=== PATIENT | female | born 1990 | race Caucasian/White ===

== ENCOUNTER 2017-01-06 18:05 | Observation (INO) | payer MEDICAID ==
[2017-01-06 18:23] VITALS: BP 125/75
[2017-01-06] MEDS ORDERED: FERR-89 PO (18:30)
[2017-01-06] MEDS ORDERED: PREN1TAB80 PO (18:30)
== END 2017-01-07 00:15 | disposition home or self-care (01) ==
LOC: 4S 18:05
PROVIDERS: ADMIT Obstetrics & Gynecology; ATTEND Obstetrics & Gynecology
DX: O9A.213 Injury, poisoning and certain other consequences of external causes complicating pregnancy, third trimester (principal); S39.91XA Unspecified injury of abdomen, initial encounter; O99.013 Anemia complicating pregnancy, third trimester; Z3A.30 30 weeks gestation of pregnancy; W19.XXXA Unspecified fall, initial encounter; Y93.89 Activity, other specified; Y92.89 Other specified places as the place of occurrence of the external cause; Y99.8 Other external cause status
CPT/HCPCS: 59025; 76811; G0378 ×2

== ENCOUNTER 2021-12-25 18:19 | Emergency (ER) | payer MEDICAID, OTHER ==
[~2021-12-25] VITALS: Ht 185.4 cm; Wt 81.8 kg
[~2021-12-25 18:19] MED LIST: FERR325T27 PO; PREN1TAB80 PO
[2021-12-25 19:38] VITALS: BP 134/89
[2021-12-25] MEDS ORDERED: CORTSOL AS (19:53)
== END 2021-12-25 20:05 | disposition home or self-care (01) ==
LOC: EMS 18:30
DX: H60.92 Unspecified otitis externa, left ear (principal)
CPT/HCPCS: 99281; 99283